=== PATIENT | male | born 1945 | race Two or more races ===

== ENCOUNTER 2020-03-26 06:23 | Day surgery (SDC) | payer OTHER ==
[~2020-03-26 06:23] MED LIST: LOSARTA PO; METFORMIN PO
== END 2020-03-26 10:20 | disposition home or self-care (01) ==
LOC: AMB-ENDOS 06:23
PROVIDERS: ATTEND Surgery
DX: C20 Malignant neoplasm of rectum (principal); D12.8 Benign neoplasm of rectum; Z93.3 Colostomy status

== ENCOUNTER 2020-04-26 15:05 | Inpatient (IN) | payer OTHER ==
[~2020-04-26] VITALS: Ht 162.6 cm; Wt 79.4 kg
[2020-05-22] MEDS ORDERED: LOSARTAN POTAS100 MG (11:22)
[2020-05-22] MEDS ORDERED: METFORMIN HCL500 M2 (11:22)
[2020-05-29] MEDS ORDERED: IMODIUM A-D2 M2 PO (10:46)
[2020-05-29] MEDS ORDERED: ACETAMINOPHEN500 M2 PO (10:46)
[2020-05-29] MEDS ORDERED: PRILOSEC OTC20 MG PO (10:49)
== END 2020-05-29 13:41 | disposition home or self-care (01) | DRG 331 ==
LOC: SURH 05-22 06:41 → O/R 05-22 06:41 → RECOVERY 05-22 09:00 → SURH 05-22 19:05
PROVIDERS: Urology; ADMIT Surgery; ATTEND Surgery
PROC: 07BC0ZX Excision of Pelvis Lymphatic, Open Approach, Diagnostic (ICD-10-PCS; 2020-05-22)
PROC: 0WHR8YZ Insertion of Other Device into Genitourinary Tract, Via Natural or Artificial Opening Endoscopic (ICD-10-PCS; 2020-05-22)
PROC: 0D1B0Z4 Bypass Ileum to Cutaneous, Open Approach (ICD-10-PCS; principal; 2020-05-22 11:30)
PROC: 0DBP0ZZ Excision of Rectum, Open Approach (ICD-10-PCS; 2020-05-22 11:30)
DX: C20 Malignant neoplasm of rectum (principal); K63.89 Other specified diseases of intestine; K43.2 Incisional hernia without obstruction or gangrene; K91.0 Vomiting following gastrointestinal surgery; I10 Essential (primary) hypertension; E11.9 Type 2 diabetes mellitus without complications; Z79.4 Long term (current) use of insulin; Z20.828 Contact with and (suspected) exposure to other viral communicable diseases

== ENCOUNTER 2020-05-21 06:55 | Day surgery (SDC) | payer OTHER ==
[2020-05-22] MEDS ORDERED: METFORMIN HCL500 M2 (11:22)
[2020-05-22] MEDS ORDERED: LOSARTAN POTAS100 MG (11:22)
== END 2020-05-21 16:05 | disposition home or self-care (01) ==
LOC: AMB-ENDOS 06:55
PROVIDERS: ATTEND Surgery
DX: K62.89 Other specified diseases of anus and rectum (principal); Z93.3 Colostomy status; Z20.828 Contact with and (suspected) exposure to other viral communicable diseases

== ENCOUNTER 2020-06-07 10:26 | Emergency (ER) | payer OTHER ==
[~2020-06-07] VITALS: Ht 162.6 cm; Wt 66.2 kg
[~2020-06-07 10:26] MED LIST changes: +ACETAMINOPHEN500 M2 PO; +IMODIUM A-D2 M2 PO; +LOSARTAN POTAS100 MG; +METFORMIN HCL500 M2; +PRILOSEC OTC20 MG PO
== END 2020-06-07 16:17 | disposition home or self-care (01) ==
LOC: ER 10:26
DX: R06.02 Shortness of breath (principal)

== ENCOUNTER 2020-07-13 07:21 | Day surgery (SDC) | payer OTHER ==
[2020-07-13] MEDS ORDERED: ULTRACET PO (10:13)
== END 2020-07-13 11:28 | disposition home or self-care (01) ==
LOC: CIR.AMB 07:21
PROVIDERS: ATTEND Surgery
DX: C20 Malignant neoplasm of rectum (principal); C18.7 Malignant neoplasm of sigmoid colon
CPT/HCPCS: 36561; C1751

== ENCOUNTER 2020-12-24 06:15 | Day surgery (SDC) | payer OTHER ==
[~2020-12-24 06:15] MED LIST changes: +ULTRACET PO
== END 2020-12-24 12:30 | disposition home or self-care (01) ==
LOC: AMB-ENDOS 06:15
PROVIDERS: ATTEND Surgery
DX: K62.89 Other specified diseases of anus and rectum (principal); Z20.822 Contact with and (suspected) exposure to COVID-19

== ENCOUNTER 2021-01-22 11:30 | Inpatient (IN) | payer OTHER ==
[~2021-01-22] VITALS: Ht 162.6 cm; Wt 75.3 kg
[2021-02-01] MEDS ORDERED: PERCOCET 5-3251 EACH PO (16:05)
[2021-02-01] MEDS ORDERED: INTESTINEX680 M1 PO (16:05)
== END 2021-02-01 17:29 | disposition home or self-care (01) | DRG 330 ==
LOC: SURG 01-29 05:25 → O/R 01-29 05:25 → SURH 01-29 06:15 → SURG 01-29 10:23 → SURH 01-29 11:30 → SURG 02-01 17:29
PROVIDERS: ADMIT Surgery; ATTEND Surgery
PROC: 0WUF0JZ Supplement Abdominal Wall with Synthetic Substitute, Open Approach (ICD-10-PCS; 2021-01-29)
PROC: 0DBB0ZZ Excision of Ileum, Open Approach (ICD-10-PCS; principal; 2021-01-29 06:15)
DX: Z43.2 Encounter for attention to ileostomy (principal); C20 Malignant neoplasm of rectum; K43.5 Parastomal hernia without obstruction or gangrene; R59.0 Localized enlarged lymph nodes; I10 Essential (primary) hypertension; E11.9 Type 2 diabetes mellitus without complications